=== PATIENT | male | born 1975 | race Caucasian/White ===

== ENCOUNTER 2020-08-20 13:28 | Emergency (ER) | payer MEDICAID, MEDICARE ==
[~2020-08-20] VITALS: Ht 172.7 cm; Wt 81.6 kg
[~2020-08-20 13:28] MED LIST: ASPI-9 PO; CIPR-225 PO; DULO60CA6 PO; HYDR-3714 PO; HYDR-3731 PO; LORA10TA7 PO; OMG1KC PO; PROP40TA5; TRAZ-227; TRZ50T
[2020-08-20] MEDS ORDERED: KETOROLAC 30 MG/ML VIAL IVP ONE (13:45)
[2020-08-20] MEDS ORDERED: NS IV 1000 ML 1,000 ML IV SCH (13:45)
[2020-08-20] MEDS ORDERED: ONDANSETRON 4 MG/2 ML (SDV) Z0FRAN IVP ONE (13:45)
--- NOTE | 2020-08-20 13:46 | ED General ---
General Stated Complaint: ABD/BACK PAIN Source of Information: Patient Exam Limitations: No Limitations (CHEN TRAYLOR APRN) History of Present Illness Date Seen by Provider: August 20, 2020 Time Seen by Provider: 13:45 Initial Comments To ER by private vehicle with reports of sudden onset of right sided lateral abdominal pain and right flank pain that began this morning awakening him from sleep. He had intense nausea but never vomited. He has had dysuria as well. No fevers or chills. Timing/Duration: 4-6 Hours Severity: Moderate Associated Systoms: Denies Symptoms (CHEN TRAYLOR APRN) Allergies and Home Medications Allergies Coded Allergies: No Known Drug Allergies (Unverified Allergy, Mild, 08/08/08) Home Medications Aspirin/Calcium Carbonate/Mag 325 Mg Tablet, 325 MG PO DAILY, (Reported) Cefuroxime Axetil 250 Mg Tablet, 250 MG PO BID Prescribed by: CHEN TRAYLOR on 08/20/20 142 Ciprofloxacin HCl 500 Mg Tablet, 500 MG PO twice a day Prescribed by: MINDY DUNN on 09/05/15 0945 Hydrocodone/Acetaminophen 1 Each Tablet, 1 EACH PO QID Prescribed by: MINDY DUNN on 09/05/15 0946 Loratadine 10 Mg Tablet, 10 MG PO DAILY, (Reported) Ondansetron 8 Mg Tab.rapdis, 8 MG PO Q6H PRN for NAUSEA/VOMITING Prescribed by: CHEN TRAYLOR on 08/20/20 142 Oxycodone HCl/Acetaminophen 1 Each Tablet, 1 TAB PO Q4H Prescribed by: CHEN TRAYLOR on 08/20/20 142 Tamsulosin HCl 0.4 Mg Cap, 0.4 MG PO DAILY Prescribed by: CHEN TRAYLOR on 08/20/20 142 Patient Home Medication List Home Medication List Reviewed: Yes (CHEN TRAYLOR APRN) Review of Systems Review of Systems Constitutional: see HPI EENTM: see HPI Respiratory: no symptoms reported Cardiovascular: no symptoms reported Genitourinary: see HPI Musculoskeletal: no symptoms reported Skin: no symptoms reported Psychiatric/Neurological: No Symptoms Reported Hematologic/Lymphatic: No Symptoms Reported Immunological/Allergic: no symptoms reported (CHEN TRAYLOR APRN) Past Pcpgbii-Cxgnbs-Fwnxmg Hx Seasonal Allergies Seasonal Allergies: No (CHEN TRAYLOR APRN) Past Medical History Orthopedic Sleep Difficulties, Anxiety, Bipolar, Depression Adverse Reaction/Blood Tranf: No (CHEN TRAYLOR APRN) Physical Exam Vital Signs Vital Signs - First Documented 08/20/20 13:41 Temp 36.4 Pulse 82 Resp 20 B/P (MAP) 152/107 (122) Pulse Ox 97 O2 Delivery Room Air (LEO FOSTER MD) Vital Signs Capillary Refill : (CHEN TRAYLOR APRN) Height, Weight, BMI Height: 5'8" Weight: 170lbs. oz. 77.816777mm; BMI Method:Stated General Appearance: No Apparent Distress, WD/WN Eyes: Bilateral Eye Normal Inspection, Bilateral Eye PERRL, Bilateral Eye EOMI Neck: Full Range of Motion, Normal Inspection Respiratory: No Accessory Muscle Use, No Respiratory Distress Cardiovascular: Regular Rate, Rhythm, Normal Peripheral Pulses Gastrointestinal: Normal Bowel Sounds, Non Tender, Soft Back: Normal Inspection, CVA Tenderness (R) Extremity: Normal Capillary Refill, Normal Inspection Neurologic/Psychiatric: Alert, Oriented x3 Skin: Normal Color, Warm/Dry (CHEN TRAYLOR APRN) Progress/Results/Core Measures Suspected Sepsis SIRS Temperature: Pulse: Respiratory Rate: Laboratory Tests 08/20/20 13:45: White Blood Count 10.3 Blood Pressure / Mean: Laboratory Tests 08/20/20 13:45: Creatinine 1.45H, Platelet Count 291 (CHEN TRAYLOR APRN) Results/Orders Lab Results Laboratory Tests Test 08/20/20 13:45 08/20/20 14:45 Range/Units White Blood Count 10.3 4.3-11.0 10^3/uL Red Blood Count 5.48 4.30-5.52 10^6/uL Hemoglobin 16.3 13.3-17.7 g/dL Hematocrit 48 40-54 % Mean Corpuscular Volume 87 80-99 fL Mean Corpuscular Hemoglobin 30 25-34 pg Mean Corpuscular Hemoglobin Concent 34 32-36 g/dL Red Cell Distribution Width 12.9 10.0-14.5 % Platelet Count 291 130-400 10^3/uL Mean Platelet Volume 9.8 9.0-12.2 fL Immature Granulocyte % (Auto) 0 % Neutrophils (%) (Auto) 56 42-75 % Lymphocytes (%) (Auto) 29 12-44 % Monocytes (%) (Auto) 10 0-12 % Eosinophils (%) (Auto) 4 0-10 % Basophils (%) (Auto) 0 0-10 % Neutrophils # (Auto) 5.8 1.8-7.8 10^3/uL Lymphocytes # (Auto) 2.9 1.0-4.0 10^3/uL Monocytes # (Auto) 1.1 H 0.0-1.0 10^3/uL Eosinophils # (Auto) 0.4 H 0.0-0.3 10^3/uL Basophils # (Auto) 0.0 0.0-0.1 10^3/uL Immature Granulocyte # (Auto) 0.0 0.0-0.1 10^3/uL Sodium Level 140 135-145 MMOL/L Potassium Level 3.4 L 3.6-5.0 MMOL/L Chloride Level 101 98-107 MMOL/L Carbon Dioxide Level 24 21-32 MMOL/L Anion Gap 15 H 5-14 MMOL/L Blood Urea Nitrogen 8 7-18 MG/DL Creatinine 1.45 H 0.60-1.30 MG/DL Estimat Glomerular Filtration Rate 53 BUN/Creatinine Ratio 6 Glucose Level 124 H 70-105 MG/DL Calcium Level 9.6 8.5-10.1 MG/DL Urine Color YELLOW Urine Clarity CLEAR Urine pH 5.5 5-9 Urine Specific [place] >=1.030 1.016-1.022 Urine Protein NEGATIVE NEGATIVE Urine Glucose (UA) NEGATIVE NEGATIVE Urine Ketones NEGATIVE NEGATIVE Urine Nitrite NEGATIVE NEGATIVE Urine Bilirubin NEGATIVE NEGATIVE Urine Urobilinogen 0.2 < = 1.0 MG/DL Urine Leukocyte Esterase TRACE H NEGATIVE Urine RBC (Auto) 3+ H NEGATIVE Urine RBC 25-50 H /HPF Urine WBC 2-5 /HPF Urine Squamous Epithelial Cells 0-2 /HPF Urine Crystals NONE /LPF Urine Bacteria TRACE /HPF Urine Casts NONE /LPF Urine Mucus MODERATE H /LPF Urine Culture Indicated NO (LEO FOSTER MD) Vital Signs/I&O 08/20/20 08/20/20 13:41 14:49 Temp 36.4 36.4 Pulse 82 77 Resp 20 20 B/P (MAP) 152/107 (122) 148/97 (122) Pulse Ox 97 97 O2 Delivery Room Air Room Air (LEO FOSTER MD) Vital Signs/I&O Capillary Refill : (CHEN TRAYLOR APRN) Progress Note : Progress Note I was the attending physician physically present in the emergency department during the care of this patient. I was not directly involved in this patient's care. (LEO FOSTER MD) Departure Impression Primary Impression: Right ureteral calculus Disposition: 01 HOME, SELF-CARE Condition: Stable Departure-Patient Inst. Decision time for Depature: 14:25 (CHEN TRAYLOR APRN) Referrals: [facility] [place] (PCP/Family) Primary Care Physician Patient Instructions: Kidney Stones (DC) Add. Discharge Instructions: Increase water intake 2. Return to ER for intolerable pain vomiting fevers or other concerns. Medication as directed. Follow-up with Dr. Sol next week if you have not passed the stone. Scripts Oxycodone HCl/Acetaminophen (Percocet 5-325 mg Tablet) 1 Each Tablet 1 TAB PO Q4H for PAIN-MODERATE MDD 6 TABS for 7 Days, #20 TAB Prov: CHEN TRAYLOR APRN 08/20/20 Ondansetron (Ondansetron Odt) 8 Mg Tab.rapdis 8 MG PO Q6H PRN for NAUSEA/VOMITING, #14 TAB Prov: CHEN TRAYLOR APRN 08/20/20 Cefuroxime Axetil (Cefuroxime) 250 Mg Tablet 250 MG PO BID, #10 TAB Prov: CHEN TRAYLOR APRN 08/20/20 Tamsulosin HCl (Flomax) 0.4 Mg Cap 0.4 MG PO DAILY, #10 CAP Prov: CHEN TRAYLOR APRN 08/20/20 CHEN TRAYLOR APRN August 20, 2020 13:46 LEO FOSTER MD August 22, 2020 07:10
[2020-08-20 13:56] LABS: BASOPHILS % (AUTO) 0 % (0-10); EOSINOPHILS # (AUTO) 0.4 10^3/uL (0.0-0.3); EOSINOPHILS % (AUTO) 4 % (0-10); HEMATOCRIT 48 % (40-54); HEMOGLOBIN 16.3 g/dL (13.3-17.7); LYMPHOCYTES # (AUTO) 2.9 10^3/uL (1.0-4.0); LYMPHOCYTES % (AUTO) 29 % (12-44); MEAN CORPUSCULAR HEMOGLOBIN 30 pg (25-34); MEAN CORPUSCULAR HGB CONC 34 g/dL (32-36); MEAN CORPUSCULAR VOLUME 87 fL (80-99); MEAN PLATELET VOLUME 9.8 fL (9.0-12.2); MONOCYTES # (AUTO) 1.1 10^3/uL (0.0-1.0); MONOCYTES % (AUTO) 10 % (0-12); NEUTROPHILS # (AUTO) 5.8 10^3/uL (1.8-7.8); NEUTROPHILS % (AUTO) 56 % (42-75); PLATELET COUNT 291 10^3/uL (130-400); WHITE BLOOD COUNT 10.3 10^3/uL (4.3-11.0)
[2020-08-20 14:08] LABS: POTASSIUM 3.4 MMOL/L (3.6-5.0)
[2020-08-20 14:09] LABS: CALCIUM 9.6 MG/DL (8.5-10.1)
[2020-08-20 14:14] LABS: CREATININE SERUM 1.45 MG/DL (0.60-1.30)
--- NOTE | 2020-08-20 14:23 | Diagnostic Imaging Report ---
EXAMINATION: Abdomen 1 view HISTORY: right flank pain COMPARISON: Abdominal radiograph 09/05/2015 FINDINGS: There is a moderate amount of gas and stool throughout the colon. Nonobstructive bowel gas pattern. There is a 0.3 cm opacity overlying the right kidney which represents renal calculus. A 0.5 cm opacity overlying the left kidney which may represent renal calculus. There is a 0.3 cm opacity within the pelvis which was not seen on prior radiograph. The lung bases are clear. The osseous structures are intact. IMPRESSION: Bilateral renal calculi measuring up to 0.5 cm. Possible 0.3 cm calculus within the distal right ureter. Recommend correlation with CT abdomen and pelvis without IV contrast. Dictated by: Dictated on workstation # [id number]
--- NOTE | 2020-08-20 14:24 | Diagnostic Imaging Report ---
EXAMINATION: CT abdomen and pelvis without contrast. TECHNIQUE: Multiple contiguous axial images were obtained through the abdomen and pelvis without the use of intravenous contrast. All CT scans use one or more of the following dose optimizing techniques: automated exposure control, MA and/or KvP adjustment based on patient size and exam type or iterative reconstruction. HISTORY: right flank pain COMPARISON: 09/05/2015 FINDINGS: Limited views of the lower thorax are unremarkable. The liver is normal without focal lesion. There is no biliary ductal dilation. Gallbladder is normal. Pancreas is normal. Spleen is normal. Adrenal glands are normal. There is a 3 mm stone in the distal right ureter with mild right-sided hydroureteronephrosis. There are approximately five right and three left nonobstructing renal stones. No left-sided hydronephrosis. Urinary bladder is normal. Visualized bowel is normal in caliber without obstruction or inflammation. No free fluid or air. No abdominal or pelvic lymphadenopathy. Aorta is normal in caliber without aneurysm. There are no suspicious osseus lesions. IMPRESSION: 1. Distal right ureteral stone measuring 3 mm with mild right-sided hydroureteronephrosis Dictated by: Dictated on workstation # [id number]
[2020-08-20] MEDS ORDERED: CEFU250T80 PO (14:26)
[2020-08-20] MEDS ORDERED: TMSL.4C PO (14:26)
[2020-08-20] MEDS ORDERED: ONDA8TAB13 PO (14:27)
[2020-08-20] MEDS ORDERED: OXYC1TAB87 PO (14:27)
[2020-08-20 14:49] VITALS: BP 148/97
[2020-08-20 14:54] LABS: BILIRUBIN,URINE NEGATIVE (NEGATIVE); CLARITY,URINE CLEAR; COLOR,URINE YELLOW; GLUCOSE, URINE (UA) NEGATIVE (NEGATIVE); KETONES,URINE NEGATIVE (NEGATIVE); LEUKOCYTE ESTERASE ,URINE TRACE (NEGATIVE); NITRITE,URINE NEGATIVE (NEGATIVE); PH,URINE 5.5 (5-9); PROTEIN,URINE NEGATIVE (NEGATIVE)
[2020-08-20 15:00] LABS: RBC,URINE 25-50 /HPF
[2020-08-20 15:01] LABS: BACTERIA,URINE TRACE /HPF; SQUAMOUS EPITHELIAL CELL,UR 0-2 /HPF
== END 2020-08-20 14:49 | disposition home or self-care (01) ==
LOC: EDUNIT# 13:28 → ER 13:31
DX: N20.1 Calculus of ureter (principal)
CPT/HCPCS: 36415; 74018; 74176; 80048; 81000; 85025

== ENCOUNTER 2022-01-02 18:21 | Emergency (ER) | payer MEDICARE, MEDICAID ==
[~2022-01-02] VITALS: Ht 170 cm; Wt 81.6 kg
[~2022-01-02 18:21] MED LIST changes: +CEFU250T80 PO; +ONDA8TAB13 PO; +OXYC1TAB87 PO; +TMSL.4C PO
[2022-01-02 18:29] VITALS: BP 168/90
[2022-01-02] MEDS ORDERED: NS IV 1000 ML 1,000 ML IV STA (19:12)
[2022-01-02] MEDS ORDERED: KETOROLAC 30 MG/ML VIAL IVP STA (19:12)
[2022-01-02 19:25] LABS: BILIRUBIN,URINE NEGATIVE (NEGATIVE); CLARITY,URINE CLEAR; COLOR,URINE YELLOW; GLUCOSE, URINE (UA) NEGATIVE (NEGATIVE); KETONES,URINE NEGATIVE (NEGATIVE); LEUKOCYTE ESTERASE ,URINE TRACE (NEGATIVE); NITRITE,URINE NEGATIVE (NEGATIVE); PROTEIN,URINE NEGATIVE (NEGATIVE)
[2022-01-02 19:26] LABS: BASOPHILS % (AUTO) 0 % (0-10); EOSINOPHILS # (AUTO) 0.3 10^3/uL (0.0-0.3); EOSINOPHILS % (AUTO) 3 % (0-10); HEMATOCRIT 44 % (40-54); HEMOGLOBIN 15.4 g/dL (13.3-17.7); LYMPHOCYTES # (AUTO) 2.3 10^3/uL (1.0-4.0); LYMPHOCYTES % (AUTO) 22 % (12-44); MEAN CORPUSCULAR HEMOGLOBIN 31 pg (25-34); MEAN CORPUSCULAR HGB CONC 35 g/dL (32-36); MEAN CORPUSCULAR VOLUME 88 fL (80-99); MEAN PLATELET VOLUME 9.9 fL (9.0-12.2); MONOCYTES % (AUTO) 10 % (0-12); NEUTROPHILS # (AUTO) 6.5 10^3/uL (1.8-7.8); NEUTROPHILS % (AUTO) 65 % (42-75); PLATELET COUNT 253 10^3/uL (130-400); WHITE BLOOD COUNT 10.1 10^3/uL (4.3-11.0)
[2022-01-02 19:31] LABS: BACTERIA,URINE NEGATIVE /HPF; RBC,URINE 25-50 /HPF
--- NOTE | 2022-01-02 19:56 | ED GI ---
General Chief Complaint: Abdominal/GI Problems Stated Complaint: RIGHT SIDED ABOMINAL PAIN, NAUSEA Nursing Triage Note: PT STATES RT FLANK PAIN RADIATING AROUND TO THE FRONT, HX OF KIDNEY STONES 4 X'S. STARTED THIS MORNING, NAUSEA Source of Information: Patient Exam Limitations: No Limitations History of Present Illness Date Seen by Provider: Jan 02, 2022 Time Seen by Provider: 19:05 Initial Comments Here with report of right flank pain that goes around to the front and lower. Does have history of kidney stones on the right. States pain started this morning and is associated with nausea. Denies vomiting. Has not taken anything for the pain. States it is 4 out of 10 but a little better right now. Denies blood in his urine or stool. Has been eating and drinking okay. States this feels different than previous kidney stone. Timing/Duration: 12 Hours Severity/Quality: Moderate Location: Flank (Right) Radiation: RUQ, RLQ Activities at Onset: None Modifying Factors: Improves With Resting Associated Symptoms: Back Pain; No Chest Pain, No Fever/Chills; Nausea/Vomiting; No Shortness of Air, No Weakness Allergies and Home Medications Allergies Coded Allergies: No Known Drug Allergies (Unverified Allergy, Mild, 08/08/08) Patient Home Medication List Home Medication List Reviewed: Yes Aspirin/Calcium Carbonate/Mag (Aspirin Buffered 325 mg Tab) 325 Mg Tablet, 325 MG PO DAILY, (Reported) Entered as Reported by: MARISSA KING on 11/12/142311 Cefuroxime Axetil (Cefuroxime) 250 Mg Tablet, 250 MG PO BID Prescribed by: CHEN TRAYLOR on 08/20/20 142 Ciprofloxacin HCl (Cipro) 500 Mg Tablet, 500 MG PO twice a day Prescribed by: MINDY DUNN on 09/05/15 0945 Hydrocodone/Acetaminophen (Lortab 10-325 mg Tablet) 1 Each Tablet, 1 EACH PO QID Prescribed by: MINDY DUNN on 09/05/15 0946 Loratadine (Loratadine) 10 Mg Tablet, 10 MG PO DAILY, (Reported) Entered as Reported by: MARISSA KING on 11/12/142311 Ondansetron (Ondansetron Odt) 8 Mg Tab.rapdis, 8 MG PO Q6H PRN for NAUSEA/VOMITING Prescribed by: CHEN TRAYLOR on 08/20/20 1427 Oxycodone HCl/Acetaminophen (Percocet 5-325 mg Tablet) 1 Each Tablet, 1 TAB PO Q4H Prescribed by: CHEN TRAYLOR on 08/20/20 1428 Tamsulosin HCl (Flomax) 0.4 Mg Cap, 0.4 MG PO DAILY Prescribed by: CHEN TRAYLOR on 08/20/20 1426 Trazodone HCl (Trazodone HCl) 100 Mg Tablet, (Reported) Entered as Reported by: MARISSA KING on 11/12/14 231 Trazodone HCl (Trazodone HCl) 50 Mg Tablet, (Reported) Entered as Reported by: MARISSA KING on 11/12/142311 Review of Systems Review of Systems Constitutional: see HPI; No chills, No fever EENTM: No Nose Congestion, No Throat Pain Respiratory: Denies Cough, Denies Shortness of Air Cardiovascular: Denies Chest Pain, Denies Edema Gastrointestinal: Abdominal Pain, Nausea Genitourinary: See HPI; Denies Burning, Denies Discharge, Denies Hematuria Musculoskeletal: no symptoms reported All Other Systems Reviewed Negative Unless Noted: Yes Past Tfhtsut-Sxlnkw-Yakstx Hx Patient Social History Tobacco Use?: No Substance use?: No Alcohol Use?: Yes Alcohol type: Beer Seasonal Allergies Seasonal Allergies: No Past Medical History Surgery/Hospitalization HX: LT KNEE Surgeries: Yes (L KNEE) Orthopedic Respiratory: No Cardiac: No Neurological: Yes Stroke Genitourinary: Yes Kidney Stones Gastrointestinal: No Musculoskeletal: No Endocrine: No Cancer: No Psychosocial: Yes Sleep Difficulties, Anxiety, Bipolar, Depression Integumentary: No Blood Disorders: No Adverse Reaction/Blood Tranf: No Family Medical History Reviewed Nursing Family Hx Physical Exam Vital Signs Vital Signs - First Documented 01/02/22 18:29 Temp 37.6 Pulse 81 Resp 18 B/P (MAP) 168/90 (116) Pulse Ox 97 O2 Delivery Room Air Capillary Refill : Less Than 3 Seconds Height/Weight/BMI Height: 5'8" Weight: 170lbs. oz. 77.989607du; 28.00 BMI Method:Stated General Appearance: WD/WN, no apparent distress HEENT: PERRL/EOMI, pharynx normal Neck: full range of motion, supple Respiratory: lungs clear, normal breath sounds Cardiovascular: regular rate, rhythm, no murmur Peripheral Pulses: 2+ Dorsalis Pedis (R), 2+ Left Dors-Pedis (L), 2+ Radial Pulses (R), 2+ Radial Pulses (L) Gastrointestinal: non tender, soft Extremities: non-tender, normal inspection Back: normal inspection, no CVA tenderness, no vertebral tenderness Neurologic/Psychiatric: alert, oriented x 3 Skin: normal color, warm/dry Progress/Results/Core Measures Results/Orders Lab Results Laboratory Tests Test 01/02/22 19:18 Range/Units White Blood Count 10.1 4.3-11.0 10^3/uL Red Blood Count 5.04 4.30-5.52 10^6/uL Hemoglobin 15.4 13.3-17.7 g/dL Hematocrit 44 40-54 % Mean Corpuscular Volume 88 80-99 fL Mean Corpuscular Hemoglobin 31 25-34 pg Mean Corpuscular Hemoglobin Concent 35 32-36 g/dL Red Cell Distribution Width 11.9 10.0-14.5 % Platelet Count 253 130-400 10^3/uL Mean Platelet Volume 9.9 9.0-12.2 fL Immature Granulocyte % (Auto) 0 % Neutrophils (%) (Auto) 65 42-75 % Lymphocytes (%) (Auto) 22 12-44 % Monocytes (%) (Auto) 10 0-12 % Eosinophils (%) (Auto) 3 0-10 % Basophils (%) (Auto) 0 0-10 % Neutrophils # (Auto) 6.5 1.8-7.8 10^3/uL Lymphocytes # (Auto) 2.3 1.0-4.0 10^3/uL Monocytes # (Auto) 1.0 0.0-1.0 10^3/uL Eosinophils # (Auto) 0.3 0.0-0.3 10^3/uL Basophils # (Auto) 0.0 0.0-0.1 10^3/uL Immature Granulocyte # (Auto) 0.0 0.0-0.1 10^3/uL Urine Color YELLOW Urine Clarity CLEAR Urine pH 6.0 5-9 Urine Specific [place] 1.020 1.016-1.022 Urine Protein NEGATIVE NEGATIVE Urine Glucose (UA) NEGATIVE NEGATIVE Urine Ketones NEGATIVE NEGATIVE Urine Nitrite NEGATIVE NEGATIVE Urine Bilirubin NEGATIVE NEGATIVE Urine Urobilinogen 0.2 < = 1.0 MG/DL Urine Leukocyte Esterase TRACE H NEGATIVE Urine RBC (Auto) 3+ H NEGATIVE Urine RBC 25-50 H /HPF Urine WBC 5-10 H /HPF Urine Squamous Epithelial Cells NONE /HPF Urine Renal Epithelial Cells NONE /HPF Urine Crystals NONE /LPF Urine Bacteria NEGATIVE /HPF Urine Casts NONE /LPF Urine Mucus NEGATIVE /LPF Urine Culture Indicated YES Sodium Level 141 135-145 MMOL/L Potassium Level 4.0 3.6-5.0 MMOL/L Chloride Level 103 98-107 MMOL/L Carbon Dioxide Level 27 21-32 MMOL/L Anion Gap 11 5-14 MMOL/L Blood Urea Nitrogen 13 7-18 MG/DL Creatinine 1.64 H 0.60-1.30 MG/DL Estimat Glomerular Filtration Rate 52 BUN/Creatinine Ratio 8 Glucose Level 91 70-105 MG/DL Calcium Level 9.8 8.5-10.1 MG/DL Corrected Calcium 8.5-10.1 MG/DL Total Bilirubin 0.7 0.1-1.0 MG/DL Aspartate Amino Transf (AST/SGOT) 17 5-34 U/L Alanine Aminotransferase (ALT/SGPT) 15 0-55 U/L Alkaline Phosphatase 74 40-136 U/L C-Reactive Protein High Sensitivity 0.21 0.00-0.50 MG/DL Total Protein 7.9 6.4-8.2 GM/DL Albumin 4.6 H 3.2-4.5 GM/DL My Orders Orders - CHARLIE PEREZ MD Cbc With Automated Diff (01/02/22 19:12) Comprehensive Metabolic Panel (01/02/22 19:12) Hs C Reactive Protein (01/02/22 19:12) Ua Culture If Indicated (01/02/22 19:12) Ns Iv 1000 Ml (Sodium Chloride 0.9%) (01/02/22 19:12) Ed Iv/Invasive Line Start (01/02/22 19:12) Ketorolac Injection (Toradol Injection) (01/02/22 19:12) Urine Culture (01/02/22 19:18) Ct Abd/Pelvis Wo(Kidney Stone) (01/02/22 19:52) Abdomen/Kub 1view (01/02/22 19:52) Vital Signs/I&O 01/02/22 18:29 Temp 37.6 Pulse 81 Resp 18 B/P (MAP) 168/90 (116) Pulse Ox 97 O2 Delivery Room Air Blood Pressure Mean: 116 Progress Progress Note : Progress Note Seen and evaluated. IV, labs, UA and normal saline 1 L bolus. Toradol 30 mg IV ordered for pain. Monitor patient. 1954: UA is positive for blood. We will go ahead and get CT abdomen and pelvis to evaluate for kidney stones as well as KUB. Monitor patient. 2099: CT does show kidney stone which is also noted on KUB. Patient informed. We did discuss outpatient treatment and follow-up. I have instructed him to follow-up with Dr. Nguyen and to call his office in the morning. He states he will. I asked him about pain medicine and he is not wanting any prescription for that. States he will use Tylenol or ibuprofen as needed. We will initiate tamsulosin and cephalexin. Discharged home with return precautions. Patient verbalized understanding of instructions and agreement with plan. Diagnostic Imaging Diagonstic Imaging: CT Plain Films/CT/US/NM/MRI: abdomen, pelvis Comments [facility], [place] NAME: CADENCE DEVINEN Rick [facility] REC#: [id number] PT STATUS: REG ER : 1975 PHYSICIAN: CHARLIE PEREZ MD ADMIT DATE: 01/02/22/ER Signed Date of Exam:01/02/22 CT ABD/PELVIS WO(KIDNEY STONE) PROCEDURE: CT urinary tract, rule out kidney stone. TECHNIQUE: Multiple contiguous axial images were obtained through the abdomen and pelvis without the use of intravenous contrast. Auto Exposure Controls were utilized during the CT exam to meet ALARA standards for radiation dose reduction. INDICATION: Right-sided flank pain. COMPARISON: 08/20/2020. FINDINGS: The heart is unremarkable. The lung bases are clear. A calculus is seen in the proximal right ureter measuring 0.5 cm with moderate right-sided hydroureteronephrosis. Bilateral nonobstructing calculi are seen. The urinary bladder is nondistended. Perinephric fat stranding is noted associated with the right kidney. The liver, spleen, pancreas, and adrenal glands have a normal appearance. The gallbladder is unremarkable. There is no pathologically enlarged mesenteric or retroperitoneal adenopathy. The bowel loops are nondilated. The appendix is visualized in the right lower quadrant and has a normal appearance. There is no free fluid or free air. No acute osseous abnormalities. 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 There is no free air, loculated collection, or adenopathy in the pelvis. IMPRESSION: 1. Obstructing calculus in the proximal right ureter measuring 0.5 cm with moderate right-sided hydronephrosis. Additional bilateral nonobstructing calculi are seen. Dictated by: Dictated on workstation # [id number] Dict: 01/02/222013 Trans: 01/02/222018 [id number] Interpreted by: RICHARD LEE DO Electronically signed by: RICHARD LEE DO 01/02/222018 Diagonstic Imaging: Xray Plain Films/CT/US/NM/MRI: abdomen Comments [facility], [place] NAME: QUINN DEVINE [facility] REC#: [id number] PT STATUS: REG ER : 1975 PHYSICIAN: CHARLIE PEREZ MD ADMIT DATE: 01/02/22/ER Signed Date of Exam:01/02/22 ABDOMEN/KUB 1VIEW REASON FOR EXAM: Abdominal pain. Flank pain. COMPARISON: CT abdomen and pelvis performed the same date. TECHNIQUE: 2 views of the abdomen FINDINGS: The calculus in the proximal right ureter is noted, better seen on the CT performed earlier the same date. Bilateral nonobstructing calculi are also present. Phleboliths are seen in the pelvis. No evidence of bowel obstruction. IMPRESSION: Calculus in the proximal right ureter. Recommend follow-up, as indicated. Dictated by: Dictated on workstation # [id number] Dict: 01/02/222023 Trans: 01/02/222028 [facility] [place] [id number] Interpreted by: RICHARD LEE DO Electronically signed by: RICHARD LEE DO 01/02/222028 Departure Impression Primary Impression: Right ureteral stone Disposition: 01 HOME, SELF-CARE Condition: Stable Departure-Patient Inst. Decision time for Depature: 21:04 Referrals: [facility] (PCP/Family) Primary Care Physician PARISA NGUYEN MD Patient Instructions: Kidney Stones (DC) Add. Discharge Instructions: All discharge instructions reviewed with patient and/or family. Voiced understanding. Drink plenty of fluids. You may take ibuprofen 600 mg every 8 hours as needed for pain. You may take Tylenol/acetaminophen 1000 mg every 6-8 hours as needed for pain. Take other medications as directed. Make appointment with Dr. Nguyen. Call his office in the morning for appointment. Let them know that you were seen in the ER and that you do have a kidney stone on the right. Return for worse pain, fever, vomiting, weakness, breathing problems or other concerns as needed. Copy Copies To 1: PARISA NGUYEN MD, TIMOTHY D MD Jan 02, 2022 19:56
[2022-01-02 19:58] LABS: ALANINE AMINOTRANSFERASE 15 U/L (0-55); ALBUMIN 4.6 GM/DL (3.2-4.5); ALKALINE PHOSPHATASE 74 U/L (40-136); BILIRUBIN,TOTAL 0.7 MG/DL (0.1-1.0); BUN/CREATININE RATIO 8; CALCIUM 9.8 MG/DL (8.5-10.1); CARBON DIOXIDE 27 MMOL/L (21-32); CHLORIDE 103 MMOL/L (98-107); CREATININE SERUM 1.64 MG/DL (0.60-1.30); GFR ESTIMATED 52; GLUCOSE 91 MG/DL (70-105); SODIUM 141 MMOL/L (135-145); TOTAL PROTEIN 7.9 GM/DL (6.4-8.2)
--- NOTE | 2022-01-02 20:17 | Diagnostic Imaging Report ---
PROCEDURE: CT urinary tract, rule out kidney stone. TECHNIQUE: Multiple contiguous axial images were obtained through the abdomen and pelvis without the use of intravenous contrast. Auto Exposure Controls were utilized during the CT exam to meet ALARA standards for radiation dose reduction. INDICATION: Right-sided flank pain. COMPARISON: 08/20/2020. FINDINGS: The heart is unremarkable. The lung bases are clear. A calculus is seen in the proximal right ureter measuring 0.5 cm with moderate right-sided hydroureteronephrosis. Bilateral nonobstructing calculi are seen. The urinary bladder is nondistended. Perinephric fat stranding is noted associated with the right kidney. The liver, spleen, pancreas, and adrenal glands have a normal appearance. The gallbladder is unremarkable. There is no pathologically enlarged mesenteric or retroperitoneal adenopathy. The bowel loops are nondilated. The appendix is visualized in the right lower quadrant and has a normal appearance. There is no free fluid or free air. No acute osseous abnormalities. 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 There is no free air, loculated collection, or adenopathy in the pelvis. IMPRESSION: 1. Obstructing calculus in the proximal right ureter measuring 0.5 cm with moderate right-sided hydronephrosis. Additional bilateral nonobstructing calculi are seen. Dictated by: Dictated on workstation # [id number]
--- NOTE | 2022-01-02 20:28 | Diagnostic Imaging Report ---
REASON FOR EXAM: Abdominal pain. Flank pain. COMPARISON: CT abdomen and pelvis performed the same date. TECHNIQUE: 2 views of the abdomen FINDINGS: The calculus in the proximal right ureter is noted, better seen on the CT performed earlier the same date. Bilateral nonobstructing calculi are also present. Phleboliths are seen in the pelvis. No evidence of bowel obstruction. IMPRESSION: Calculus in the proximal right ureter. Recommend follow-up, as indicated. Dictated by: Dictated on workstation # [id number]
== END 2022-01-02 21:30 | disposition home or self-care (01) ==
LOC: EDUNIT# 18:21 → ER 18:24
DX: N20.2 Calculus of kidney with calculus of ureter (principal)
CPT/HCPCS: 36415; 74018; 74176; 80053; 81000; 85025; 86141; 87088

== ENCOUNTER → 2022-01-09 | Outpatient (CLI) | payer MEDICARE, MEDICAID ==
--- NOTE | 2022-01-09 17:14 | Diagnostic Imaging Report ---
INDICATION: Nephrolithiasis. COMPARISON: 01/02/[address] of that same date. FINDINGS: The supine KUB shows a 5.6 mm calculus projecting over the distal spinous process of L3, unchanged in position from the correlative CT where it was shown to be in the proximal ureter. Additional intrarenal calculi in the left greater than right kidneys also appear unchanged. Multiple pelvic phleboliths, greater left, are unchanged. The bowel gas pattern is unremarkable. IMPRESSION: 1. Large right proximal ureteral stone in unchanged position from initial CT. 2. Left greater than right kidney stones and pelvic phleboliths are again noted. Dictated by: Dictated on workstation # [id number]
== END ==
LOC: RAD 13:33
PROVIDERS: ATTEND Urology
DX: N20.2 Calculus of kidney with calculus of ureter (principal)
CPT/HCPCS: 74018

== ENCOUNTER 2022-01-23 15:00 | Outpatient (CLI) | payer MEDICARE, MEDICAID ==
[~2022-01-23] VITALS: Ht 170.2 cm; Wt 86.4 kg
[2022-01-23] MEDS ORDERED: ASPI-999 PO (15:45)
[2022-01-24] MEDS ORDERED: TMSL.4C PO (09:00)
[2022-01-24] MEDS ORDERED: NITR-65 PO (09:00)
[2022-01-24] MEDS ORDERED: KETO10TA PO (09:00)
== END 2022-01-24 08:35 | disposition home or self-care (01) ==
LOC: PREOP 15:00
PROVIDERS: ATTEND Urology
DX: Z01.818 Encounter for other preprocedural examination (principal)

== ENCOUNTER 2022-01-24 05:52 | Day surgery (SDC) | payer MEDICARE, MEDICAID ==
[2022-01-24] VITALS (11 sets, daily range): BP systolic 101–143; BP diastolic 59–93
[~2022-01-24] VITALS: Ht 170.2 cm; Wt 86.4 kg
[~2022-01-24 05:52] MED LIST changes: +ASPI-999 PO
[2022-01-24] MEDS ORDERED: LACTATED RINGERS 1,000 ML IV PRN (06:15)
[2022-01-24] MEDS ORDERED: cefTRIAXone 1 GM PRE-MIX 50 ML IV ONE (06:15)
--- NOTE | 2022-01-24 07:16 | Progress Note-Pre Operative ---
Pre-Operative Progress Note Date of Available H&P: Jan 24, 2022 Date H&P Reviewed: Jan 24, 2022 Time H&P Reviewed: 07:16 Changes from last HP NONE Pre-Operative Diagnosis: RT PROXIMAL URETERAL STONE PARISA NGUYEN MD Jan 24, 2022 07:16
[2022-01-24] MEDS ORDERED: fentaNYL INJ 100 MCG/2 ML AMP ONE (07:22)
[2022-01-24] MEDS ORDERED: MIDAZOLAM 2 MG/2 ML (VERSED) VIAL ONE ×2 (07:22→08:23)
--- NOTE | 2022-01-24 07:33 | Progress Note-Post Operative ---
Post-Operative Progess Note Surgeon (s)/Packing Room Worker (s) Surgeon PARISA NGUYEN MD Packing Room Worker: NONE Pre-Operative Diagnosis RT PROXIMAL URETERAL STONE Post-Operative Diagnosis SAME Procedure & Operative Findings Date of Procedure 01/24/22 Procedure Performed/Findings RT ESWL Anesthesia Type GENERAL Estimated Blood Loss Estimated blood loss (mL): NONE Specimens/Packing Specimens Removed NONE Packing: NONE PARISA NGUYEN MD Jan 24, 2022 07:32
[2022-01-24] MEDS ORDERED: proPOfol 200 MG/20 ML (DIPRIVAN) VIAL IV ONE (07:35)
[2022-01-24] MEDS ORDERED: ONDANSETRON 4 MG/2 ML (SDV) Z0FRAN ONE (07:35)
[2022-01-24] MEDS ORDERED: LIDOCAINE PF 2% 5 ML (XYLOCAINE) VIAL ONE (07:35)
--- NOTE | 2022-01-24 07:36 | Discharge Inst-Urology ---
Discharge Inst-Urology Reconcile Patient Problems Problems Reviewed?: Yes Final Diagnosis RT PROXIMAL URETERAL STONE Patient Instructions/Follow Up Plan/Assessment/Instructions Please make appointment to been seen in office Tuesday 02/06, KUB prior to it. KUB on way home Post ESWL instructions to patient Stay off ASA Increase oral fluids for 48 hours and then as needed. Diet and Activity as tolerated. If questions or concerns contact your physician Or seek help at emergency department. PARISA NGUYEN MD Jan 24, 2022 07:35
--- NOTE | 2022-01-24 07:59 | Diagnostic Imaging Report ---
INDICATION: ESWL. Nephrolithiasis TECHNIQUE: Single radiograph of the abdomen 6:22 AM CORRELATION STUDY: 01/09/2022 FINDINGS: Calcifications over the left renal silhouette. Right renal silhouette is largely obscured by overlying bowel gas and stool. Prominent calcification in the expected location right renal pelvis, unchanged. Phlebolith calcification in the pelvis. Moderate stool in the colon. No obstructive feature. IMPRESSION: 1. Generally stable distribution and appearance of multiple calcifications over the left renal silhouette. 2. Generally stable positioning of a probable prominent right renal pelvis calcification. Dictated by: Dictated on workstation # [id number]
[2022-01-24] MEDS ORDERED: SEVOFLURANE (ULTANE) 15 ML INHAL SOLN ONE (08:03)
[2022-01-24] MEDS ORDERED: NITR-65 PO (09:00)
[2022-01-24] MEDS ORDERED: TMSL.4C PO (09:00)
[2022-01-24] MEDS ORDERED: KETO10TA PO (09:00)
--- NOTE | 2022-01-24 09:12 | Anesthesia-General Post-Op ---
General Patient Condition Mental Status/LOC: Same as Preop Cardiovascular: Satisfactory Nausea/Vomiting: Absent Respiratory: Satisfactory Pain: Controlled Complications: Absent Post Op Complications Complications None Follow Up Care/Instructions Patient Instructions None needed. Anesthesia/Patient Condition Patient Condition Patient is doing well, no complaints, stable vital signs, no apparent adverse anesthesia problems. No complications reported per nursing. ROBIN NAJERA CRNA Jan 24, 2022 09:12
--- NOTE | 2022-01-24 10:37 | Diagnostic Imaging Report ---
INDICATION: Post ESWL. Compared with exam earlier this same date. FINDINGS: A 4.8 mm calcification projects over the L3 right lumbar transverse process and may be within the right ureter. Left pelvic calcifications inferiorly are believed phleboliths unchanged. Bilateral intrarenal stones greater left than right showed no obvious change. IMPRESSION: Probable 4.8 mm calculus right proximal ureter L3 level. Bilateral nephrolithiasis, presumed phleboliths in the pelvis. Dictated by: Dictated on workstation # [id number]
--- NOTE | 2022-01-24 14:04 | OPERATIVE REPORT ---
DATE OF SERVICE: 01/24/2022 PREOPERATIVE DIAGNOSIS: Right proximal ureteral stone. POSTOPERATIVE DIAGNOSIS: Right proximal ureteral stone. OPERATION PERFORMED: Right ESWL. SURGEON: Kevin Nguyen MD ANESTHESIA: General. COMPLICATIONS: None. DESCRIPTION OF PROCEDURE: Under satisfactory general anesthesia, the patient in supine position on the ESWL table, the right proximal ureteral stone was localized. Shocks were delivered at kV of 6, a total of 2500 shocks completely fragmented the stone that was hardly visualized. The patient received 40 mg of Lasix and 30 mg of Toradol IV at the end of the procedure. He tolerated the procedure and anesthesia well and was sent to recovery room in stable condition. Job ID: [id number] DocumentID: [id number] Dictated Date: 01/24/2022 08:00:06 Digital Production Operator Date: 01/24/2022 14:03:42 Dictated By: KEVIN NGUYEN MD
== END 2022-01-24 10:20 | disposition home or self-care (01) ==
LOC: SDC 05:52
PROVIDERS: ATTEND Urology
DX: N20.1 Calculus of ureter (principal); F17.220 Nicotine dependence, chewing tobacco, uncomplicated; Z28.310 Unvaccinated for COVID-19
CPT/HCPCS: 74018; 87081

== ENCOUNTER → 2022-02-06 | Outpatient (CLI) | payer MEDICARE, MEDICAID ==
[~2022-02-06] MED LIST changes: +KETO10TA PO; +NITR-65 PO
--- NOTE | 2022-02-06 16:50 | Diagnostic Imaging Report ---
INDICATION: History of ureteral calculi. COMPARISON: 01/24/2022. FINDINGS: Single frontal radiographic view of the abdomen was obtained. Previously described calculus projecting over the right transverse process of L3 is no longer identified. This may be on the basis of interval fragmentation. Multiple left-sided renal calculi are again identified. Small bowel loops are nondistended. No unexpected radio opaque foreign bodies are seen. There is no large collection of free intraperitoneal air. IMPRESSION: 1. Previously described right-sided calculus at the level of the L3 transverse process is no longer identified. Again, this may be on the basis of interval fragmentation. 2. Redemonstration of multiple left renal calculi. Dictated by: Dictated on workstation # [id number]
== END ==
LOC: RAD 14:58
PROVIDERS: ATTEND Urology
DX: N20.2 Calculus of kidney with calculus of ureter (principal)
CPT/HCPCS: 74018

== ENCOUNTER 2022-02-13 05:45 | Outpatient (CLI) | payer MEDICARE, MEDICAID ==
[~2022-02-13] VITALS: Ht 170.2 cm; Wt 80.7 kg
== END 2022-02-13 12:43 | disposition home or self-care (01) ==
LOC: PREOP 05:45
PROVIDERS: ATTEND Surgery
DX: Z01.818 Encounter for other preprocedural examination (principal)

== ENCOUNTER 2022-02-21 11:38 | Day surgery (SDC) | payer MEDICARE, MEDICAID ==
[~2022-02-21] VITALS: Ht 170 cm; Wt 80.7 kg
[2022-02-21] MEDS ORDERED: LACTATED RINGERS 1,000 ML IV STA (11:45)
[2022-02-21 11:50] VITALS: BP 138/88
--- NOTE | 2022-02-21 11:50 | Progress Note-Pre Operative ---
Pre-Operative Progress Note Date of Available H&P: Jan 30, 2022 Date H&P Reviewed: Feb 21, 2022 Time H&P Reviewed: 11:49 History & Physical: H&P Reviewed, Patient Examed, No changes noted Changes from last HP None Pre-Operative Diagnosis: Hematochezia EVERT ANGEL DO Feb 21, 2022 11:49
[2022-02-21] MEDS ORDERED: MIDAZOLAM 2 MG/2 ML (VERSED) VIAL ONE (12:24)
[2022-02-21] MEDS ORDERED: PROPOFOL INJECTION 50 ML IV ONE (12:24)
[2022-02-21] MEDS ORDERED: proPOfol 200 MG/20 ML (DIPRIVAN) VIAL IV ONE (13:08)
--- NOTE | 2022-02-21 13:18 | Discharge Inst-Simple/Standard ---
Discharge Inst-Standard Patient Instructions/Follow Up Plan of Care/Instructions/FU: Follow up in [address] Melendez Activity as Tolerated: Yes Discharge Diet: No Restrictions, Regular Diet EVERT MELENDEZ DO Feb 21, 2022 13:18
[2022-02-21 13:20] VITALS: BP 126/80
[2022-02-21 13:25] VITALS: BP 132/82
[2022-02-21 13:30] VITALS: BP 143/92
--- NOTE | 2022-02-21 13:45 | Anesthesia-General Post-Op ---
MAC Patient Condition Mental Status/LOC: Same as Preop Cardiovascular: Satisfactory Nausea/Vomiting: Absent Respiratory: Satisfactory Pain: Controlled Complications: Absent Post Op Complications Complications None Follow Up Care/Instructions Patient Instructions None needed. Anesthesiology Discharge Order Discharge Order Patient is doing well, no complaints, stable vital signs, no apparent adverse anesthesia problems. No complications reported per nursing. NANCI INTERIANO CRNA Feb 21, 2022 13:45
[2022-02-21 13:56] VITALS: BP 158/95
--- NOTE | 2022-02-21 23:48 | OPERATIVE REPORT ---
DATE OF SERVICE: 02/21/2022 PREOPERATIVE DIAGNOSIS: Hematochezia. POSTOPERATIVE DIAGNOSES: Internal hemorrhoids and colon polyps x2. PROCEDURE: Colonoscopy with hot biopsy polypectomy x2. SURGEON: Evert Melendez DO. ANESTHESIA: Per SALES TEAM MANAGER. ESTIMATED BLOOD LOSS: None. COMPLICATIONS: None. INDICATIONS: The patient is a 46-year-old male with hematochezia. He understands risks and benefits of procedure and wishes to proceed. Consent was signed in chart. DESCRIPTION OF PROCEDURE: The patient was taken to endoscopy suite, placed in left lateral recumbent position. Time-out was performed. Digital rectal exam was performed, noting some internal hemorrhoids. No palpable polyps, masses or ulcerations. Scope was inserted in the rectum and advanced all the way to cecum with minimal difficulty. Prep was adequate with irrigation and suction. Scope was then slowly retracted back. No polyps, mass or ulcerations in the cecum, ascending colon. In transverse colon, two polyps were present, which hot biopsy polypectomies were performed. Scope was then continuously retracted back. No polyps, masses, ulcerations [ ] the transverse, descending, sigmoid colon. Once in the rectum, scope was retroflexed noting no other pathology except for the hemorrhoids. Scope was returned to its normal position, slowly withdrawn until completely removed. The patient tolerated the procedure well with no complications, was taken to recovery room in stable condition. RECOMMENDATIONS: The patient would consider a hemorrhoid energy therapy. We will follow up on pathology of the polyps. Will need a repeat colonoscopy in 5 years and any issues before that be seen at that time. Job ID: [id number] DocumentID: [id number] Dictated Date: 02/21/2022 13:22:13 Horologist Apprentice Date: 02/21/2022 23:46:00 Dictated By: EVERT MELENDEZ DO
== END 2022-02-21 14:05 | disposition home or self-care (01) ==
LOC: ENDO 11:38
PROVIDERS: ATTEND Surgery
DX: D12.3 Benign neoplasm of transverse colon (principal); K64.8 Other hemorrhoids; Z28.310 Unvaccinated for COVID-19
CPT/HCPCS: 88305

== ENCOUNTER → 2022-05-02 | Outpatient (CLI) | payer MEDICARE, MEDICAID | LOC: CARD 11:29 | PROVIDERS: ATTEND Internal Medicine Cardiovascular Disease | DX: I11.9 Hypertensive heart disease without heart failure (principal); I25.10 Atherosclerotic heart disease of native coronary artery without angina pectoris | CPT/HCPCS: 93306 ==

== ENCOUNTER → 2022-05-24 | Outpatient (CLI) | payer MEDICARE, MEDICAID ==
[~2022-05-24] MED LIST changes: +CATHETER FLUSH 10 ML SYR IVP PRN
[2022-05-24 13:12] VITALS: BP 132/93
--- NOTE | 2022-05-24 18:26 | Cardiology Stress Test Report ---
Stress Test Report Date of Procedure/Referring: Date of Procedure: May 24, 2022 [facility] Admitting Physician Admitting Physician: Attending Physician: Charline Mosquera MD Indications: HTN Baseline Heart Rate: 71 Baseline Blood Pressure: Blood Pressure Systolic: 132 Blood Pressure Diastolic: 93 Vital Signs Date Time Temp Pulse Resp B/P (MAP) Pulse Ox O2 Delivery O2 Flow Rate FiO2 05/24/22 13:12 73 132/93 (106) 96 Baseline Vital Signs Vital Signs Date Time Temp Pulse Resp B/P (MAP) Pulse Ox O2 Delivery O2 Flow Rate FiO2 05/24/22 13:12 73 132/93 (106) 96 Baseline EKG: Baseline EKG: NSR Summary: After explaining the procedure and details to the patient, he signed the consent and was brought to the stress nuclear laboratory. Patient exercised on standard Thee protocol, EKG, heart rate and blood pressure were monitored continuously, resting and stress doses of radio tracer were injected, imaging was acquired and reviewed in the short axis, horizontal long axis and vertical long axis views Patient was able to exercise for a total of 7 minutes on Thee protocol, METs 7.9 Maximum heart rate 154 Maximum blood pressure 200/84 Stress EKG, Minimal nondiagnostic changes Recovery EKG, Return to baseline TID: 1.09 SSS: 2 SDS: 0 EF: 60 Conclusion: Good exercise tolerance for a total of 7 minutes on standard Thee protocol, 7.9 METS achieving 88% of maximum expected heart rate Appropriate heart rate response to exercise with hypertensive response to exercise with peak blood pressure 200/84 return to baseline during recovery Nondiagnostic EKG changes with exercise return to baseline during recovery No ischemia or infarction noted on SPECT images Normal left ventricular size, ejection fraction 60% Copy Copies To 1: [facility]/ CHARLINE MOSQUERA MD May 24, 2022 18:26
== END ==
LOC: CARD 11:37
PROVIDERS: ATTEND Internal Medicine Cardiovascular Disease
DX: I10 Essential (primary) hypertension (principal); I25.10 Atherosclerotic heart disease of native coronary artery without angina pectoris
CPT/HCPCS: 78452; 93017; A9502